=== PATIENT | female | born 1980 | race Caucasian/White ===

== ENCOUNTER 2019-11-01 10:26 | Emergency (ER) | payer OTHER ==
[~2019-11-01] VITALS: Ht 157.5 cm; Wt 79.4 kg
[2019-11-01 10:44] VITALS: BP 109/79
== END 2019-11-01 11:00 | disposition home or self-care (01) ==
LOC: ER 10:30
DX: K04.7 Periapical abscess without sinus (principal); Z90.710 Acquired absence of both cervix and uterus